=== PATIENT | female | born 1985 | race Caucasian/White ===

== ENCOUNTER 2017-10-23 22:30 | Emergency (ER) | payer SELFPAY ==
[2017-10-23 22:31] VITALS: BMI 37.7
--- NOTE | 2017-10-24 00:30 | C.PDOC ---
History Of Present Illness 31 year old female presents to the ED for evaluation of left foot injury. Patient reports that she twisted her left foot while walking prior to arrival and heard a popping sound. She has had pain with weigthbearing and ambulation since that time. No other acute complaints. Time Seen by Provider: 10/23/17 23:25 Chief Complaint (Nursing): Lower Extremity Problem/Injury History Per: Patient History/Exam Limitations: no limitations Onset/Duration Of Symptoms: Mins Current Symptoms Are (Timing): Still Present Recent travel outside of the [place]: No - Ankle/Foot Description Of Injury: Twisted Past Medical History Reviewed: Historical Data, Nursing Documentation, Vital Signs Vital Signs: Last Vital Signs Temp 97.8 F 10/24/17 00:45 Pulse 88 10/24/17 00:45 Resp 20 10/24/17 00:45 BP 130/80 10/24/17 00:45 Pulse Ox 98 10/24/17 01:45 - Medical History PMH: Anxiety, Asthma, Bipolar Disorder, Depression, Sexually Transmitted Disease (GENITAL HERPES) Denies: Chronic Kidney Disease Surgical History: Appendectomy, Cholecystectomy, (x3) - [facility] Procedures MONITORING NOS (05/01/14) IMMOBILIZ/WOUND ATTN NEC (03/02/15) Family History: States: Unknown Family Hx - Social History Hx Tobacco Use: Yes Hx Alcohol Use: Yes Hx Substance Use: No - Immunization History Hx Tetanus Toxoid Vaccination: No Hx Influenza Vaccination: No Hx Pneumococcal Vaccination: No Review Of Systems Constitutional: Negative for: Fever, Chills Musculoskeletal: Positive for: Foot Pain (left) Physical Exam - Physical Exam Appears: Well, Non-toxic, No Acute Distress Skin: Normal Color, Warm, Dry Head: Atraumatic, Normacephalic Eye(s): bilateral: Normal Inspection Neck: Normal, Normal ROM, Supple Back: Normal Inspection Extremity: Normal ROM, No Calf Tenderness, No Deformity, No Swelling, Other ( tenderness to the plantar aspect of mid left foot, no calcaneal tenderness, no tenderness to dorsum of foot, ROM foot and ankle normal, no deformity , no ecchymosis, no erythema, good capillary refill, pulses intact, strength and sensation normal) Neurological/Psych: Oriented x3, Normal Speech Gait: Other (Patient is ambulatory with a mildly antalgic gait) ED Course And Treatment O2 Sat by Pulse Oximetry: 98 - Other Rad Left foot xray X-Ray: Interpreted by Me, Viewed By Me, Read By Radiologist Interpretation: No fracture or dislocation Progress Note: Motrin PO given. Patient feeling improved. Patient placed in orthopedic walking boot by CP and discharged, advised to follow up with podiatry Disposition Counseled Patient/Family Regarding: Studies Performed, Diagnosis, Need For Followup - Disposition Referrals: [facility] [Outside] Podiatry Clinic [Outside] Disposition: HOME/ ROUTINE Disposition Time: 00:27 Condition: STABLE Additional Instructions: Please follow up in podiatry clinic Take motrin or advil for pain Return to ER if worse Prescriptions: Ibuprofen [Motrin] 600 mg PO Q6H #20 tab Instructions: Foot Sprain (DC) Forms: [facility] (Bulgarian), Work Excuse - Clinical Impression Clinical Impression: Sprain of foot, left - Scribe Statement The provider has reviewed the documentation as recorded by the Scribe (Linus Covington) All medical record entries made by the Scribe were at my direction and personally dictated by me. I have reviewed the chart and agree that the record accurately reflects my personal performance of the history, physical exam, medical decision making, and the department course for this patient. I have also personally directed, reviewed, and agree with the discharge instructions and disposition.
[2017-10-24 00:46] VITALS: BP 130/80; PULSE 88; RESP 20; TEMP 97.8
[2017-10-24 01:43] VITALS: O2SAT 98
--- NOTE | 2017-10-24 10:32 | RAD ---
PROCEDURE: Left Foot Radiographs. HISTORY: LEFT FOOT PAIN COMPARISON: None available. FINDINGS: BONES: No acute displaced fracture. JOINTS: No dislocation. SOFT TISSUES: Soft tissue swelling. No evidence of radiopaque foreign body. OTHER FINDINGS: None. IMPRESSION: Soft tissue swelling. No acute displaced fracture and dislocation identified. If symptoms persist, or if there is continued clinical concern, x-ray follow-up in 7-10 days should be considered.
== END 2017-10-24 00:45 | disposition home or self-care (01) ==
LOC: C.ER 22:30
DX: S93.602A Unspecified sprain of left foot, initial encounter (principal); X50.1XXA Overexertion from prolonged static or awkward postures, initial encounter; Y93.01 Activity, walking, marching and hiking

== ENCOUNTER 2017-10-31 13:12 | Emergency (ER) | payer MEDICAID, OTHER ==
[2017-10-31 13:12] VITALS: BMI 37.7
[2017-10-31 13:29] VITALS: BP 118/81; PULSE 74; RESP 20; TEMP 98.2; O2SAT 100
[2017-10-31 13:56] LABS: HCG,QUALITATIVE URINE NEGATIVE (NEGATIVE); SQUAMOUS EPITHIAL 15 /hpf (0-5); URINE AMORPHOUS SEDIMENT RARE /ul (<OCC); URINE BACTERIA RARE (<OCC); URINE BILIRUBIN NEGATIVE (NEGATIVE); URINE BLOOD NEGATIVE (NEGATIVE); URINE CLARITY Hazy (Clear); URINE COLOR Yellow (YELLOW); URINE GLUCOSE (UA) NORMAL (Normal); URINE PROTEIN NEGATIVE (NEGATIVE); URINE UROBILINOGEN NORMAL mg/dL (0.2-1.0)
[2017-10-31 13:57] LABS: URINE LEUKOCYTE ESTERASE 1+ Leu/uL (Negative)
[2017-10-31] MEDS ORDERED: Sodium Chloride 0.9% 1,000 ML IV ONE (14:21)
[2017-10-31 14:48] LABS: BASO # 0.1 K/uL (0.0-0.2); BASO % 1.1 % (0.0-2.0); EOS # 0.2 K/uL (0.0-0.7); EOS % 2.8 % (0.0-4.0); HEMOGLOBIN 11.6 g/dL (11.0-16.0); LYMPH # 2.1 K/uL (1.0-4.3); LYMPH % 24.6 % (20.0-40.0); MEAN CELL VOLUME 76.9 fL (81.0-99.0); MEAN CORPUSCULAR HEMOGLOBIN 25.7 pg (27.0-31.0); MEAN CORPUSCULAR HGB CONC 33.4 g/dL (33.0-37.0); MONO # 0.4 K/uL (0.0-0.8); MONO % 4.9 % (0.0-10.0); NEUT # 5.8 K/uL (1.8-7.0); NEUT % 66.6 % (50.0-75.0); NRBC % 0.1 % (0.0-2.0); RBC 4.52 Mil/uL (3.80-5.20); RED CELL DISTRIBUTION WIDTH 17.7 % (11.5-14.5); WHITE BLOOD COUNT 8.6 K/uL (4.8-10.8)
[2017-10-31 15:15] LABS: ALB/GLOB RATIO 1.1 (1.0-2.1); ALBUMIN 4.3 g/dL (3.5-5.0); ALT/SGPT 17 U/L (9-52); AST/SGOT 24 U/L (14-36); BLOOD UREA NITROGEN 18 mg/dL (7-17); CALCIUM 9.4 mg/dl (8.6-10.4); GFR AFRICAN-AMERICAN > 60; GFR NON-AFRICAN AMERICAN > 60
--- NOTE | 2017-10-31 15:52 | C.PDOC ---
History Of Present Illness 32 y/o female (s/p tubal ligation in 2016) presents to ED with complaints of feeling nauseous and pelvic cramping for 1 week. Patient states she took 3 home tests, 2 which were positive and 1 was negative. Patient denies vomiting, diarrhea, fever, vaginal bleeding/dishcarge, dysuria/hematuria. Time Seen by Provider: 10/31/17 13:53 Chief Complaint (Nursing): Abdominal Pain History Per: Patient History/Exam Limitations: no limitations Onset/Duration Of Symptoms: Days Current Symptoms Are (Timing): Still Present Severity: Mild Location Of Pain/Discomfort: Suprapubic Radiation Of Pain To:: None Quality Of Discomfort: Cramping Past Medical History Reviewed: Historical Data, Nursing Documentation, Vital Signs Vital Signs: Last Vital Signs Temp 98.2 F 10/31/17 13:22 Pulse 74 10/31/17 13:22 Resp 20 10/31/17 13:22 BP 118/81 10/31/17 13:22 Pulse Ox 100 11/12/17 07:21 - Medical History PMH: Anxiety, Asthma, Bipolar Disorder, Depression, Sexually Transmitted Disease (GENITAL HERPES) Surgical History: Appendectomy, Cholecystectomy, (x3) - [facility] Procedures MONITORING NOS (05/01/14) IMMOBILIZ/WOUND ATTN NEC (03/02/15) Family History: States: No Known Family Hx - Social History Hx Tobacco Use: Yes Hx Alcohol Use: Yes Hx Substance Use: No - Immunization History Hx Tetanus Toxoid Vaccination: No Hx Influenza Vaccination: No Hx Pneumococcal Vaccination: No Review Of Systems Except As Marked, All Systems Reviewed And Found Negative. Constitutional: Negative for: Fever Cardiovascular: Negative for: Chest Pain Respiratory: Negative for: Shortness of Breath Gastrointestinal: Positive for: Nausea. Negative for: Vomiting, Abdominal Pain , Diarrhea Genitourinary: Positive for: Pelvic Pain. Negative for: Dysuria, Hematuria, Vaginal Discharge, Vaginal Bleeding Physical Exam - Physical Exam Appears: Well, Non-toxic, No Acute Distress Skin: Warm, Dry, No Rash Eye(s): bilateral: Normal Inspection Oral Mucosa: Moist Neck: Supple Cardiovascular: Rhythm Regular Respiratory: Normal Breath Sounds, No Rales, No Rhonchi, No Wheezing Gastrointestinal/Abdominal: Normal Exam, Bowel Sounds, Soft, No Tenderness Back: No CVA Tenderness Neurological/Psych: Oriented x3 ED Course And Treatment - Laboratory Results Result Diagrams: 10/31/17 14:42 10/31/17 14:42 O2 Sat by Pulse Oximetry: 100 (RA) Pulse Ox Interpretation: Normal Progress Note: Blood work, UA, Upreg ordered and reviewed. Patient given IV NS bolus, IV zofran. Reevaluation Time: 16:25 Reassessment Condition: Improved (Patient resting comfortably, in no pain/ distress. On exam, abdomen is soft and nontender. Blood work unremarkable, Beta quant (-). UA (+) for mild leuk esterase and WBCs, but also epithelial cells; patient denies urinary symptoms, will not treat for UTI. Patient instructed to follow up with tie up worker within 1 week, and understands she should return to ED if symptoms worsen.) Disposition Counseled Patient/Family Regarding: Studies Performed, Diagnosis, Need For Followup - Disposition Referrals: [facility] [Outside] Disposition: HOME/ ROUTINE Disposition Time: 16:25 Condition: STABLE Instructions: Nausea and Vomiting, Adult (DC) Forms: General Discharge Instructions, [facility] (Icelandic) Print Language: SPANISH - Clinical Impression Clinical Impression: Pelvic cramping, Nausea - Scribe Statement The provider has reviewed the documentation as recorded by the Tevinibankit Villeda All medical record entries made by the Wale were at my direction and personally dictated by me. I have reviewed the chart and agree that the record accurately reflects my personal performance of the history, physical exam, medical decision making, and the department course for this patient. I have also personally directed, reviewed, and agree with the discharge instructions and disposition.
== END 2017-10-31 16:20 | disposition home or self-care (01) ==
LOC: C.ER 13:12
DX: R10.2 Pelvic and perineal pain (principal); R11.0 Nausea